=== PATIENT | female | born 1995 | race Two or more races ===

== ENCOUNTER 2018-08-04 14:51 | Emergency (ER) | payer OTHER ==
--- NOTE | 2018-08-04 15:06 | PDOC ---
Rapid Medical Evaluation Time Seen by Provider: 08/04/18 15:04 Medical Evaluation: Allergies Allergy/AdvReac Type Severity Reaction Status Date / Time No Known Allergies Allergy Verified 03/05/14 23:12 08/04/18 15:04 I have performed a brief in-person evaluation of this patient. The patient presents with a chief complaint of: lower back pain and vomiting no menses x3 months negative test at home today Pertinent physical exam findings: ambulates I have ordered the following:u preg The patient will proceed to the ED for further evaluation. Discharge Disposition - Diagnosis Back pain, Vomiting - Referrals - Patient Instructions - Post Discharge Activity
[2018-08-04 15:07] VITALS: BP 109/66; PULSE 97; TEMP 98.1; BMI 31.1
--- NOTE | 2018-08-04 15:57 | PDOC ---
*Physical Exam - Vital Signs Last Vital Signs Temp Pulse Resp BP Pulse Ox 98.1 F 97 H 18 109/66 100 08/04/18 15:05 08/04/18 15:05 08/04/18 15:05 08/04/18 15:05 08/04/18 15:05 - Physical Exam Comments: 08/04/18 15:57 The patient was examined by [JACOBO Olivarez] under my direct supervision. I personally evaluated the patient. I concur with the above findings and the plan of care. *DC/Admit/Observation/Transfer Diagnosis at time of Disposition: Back pain, Vomiting - Referrals Referrals: Lilo Poon MD [Primary Care Provider] - - Patient Instructions - Post Discharge Activity
[2018-08-04] MEDS ORDERED: ONDANSETRON 4 MG TABLET PO ONE (16:14)
--- NOTE | 2018-08-04 16:40 | PDOC ---
History of Present Illness - General Chief Complaint: Nausea/Vomiting Stated Complaint: BACK PAIN/DIARRHEA Time Seen by Provider: 08/04/18 15:04 History Source: Patient - History of Present Illness Timing/Duration: reports: intermittent, other (this am) Past History - Past Medical History Allergies/Adverse Reactions: Allergies Allergy/AdvReac Type Severity Reaction Status Date / Time No Known Allergies Allergy Verified 08/04/18 15:05 Home Medications: Ambulatory Orders Ferrous Sulfate [Feosol] 325 mg PO DAILY 01/21/14 Vit 108/Iron/Folic AC [ One Tablet] 1 each PO DAILY 01/21/14 Acetaminophen [Tylenol .Regular Strength -] 650 mg PO Q3H PRN #20 tablet Amlodipine Besylate [Norvasc -] 2.5 mg PO DAILY #30 tab 03/09/14 Benzocaine [Americaine 20% [place] -] 1 spray TP PRN PRN #1 spraybtl 03/09/14 Ferrous Sulfate [Feosol] 325 mg PO BID #60 ud 03/09/14 Vitamins (Sjr) - 1 tab PO DAILY #30 tablet 03/09/14 Witch Ashlee 50% (Tucks) [Tucks Pads -] 1 pad TP PRN PRN #1 pad 03/09/14 Ondansetron HCl [Zofran] 4 mg PO Q8H #12 tablet 08/04/18 Ondansetron HCl [Zofran] 4 mg PO Q8H #12 tablet 08/04/18 Asthma: No Cancer: No Cardiac Disorders: No COPD: No Diabetes: No HTN: No Seizures: No Thyroid Disease: No - Suicide/Smoking/Psychosocial Hx Smoking History: Never smoked Have you smoked in the past 12 months: No Information on smoking cessation initiated: No Hx Alcohol Use: No Drug/Substance Use Hx: No Substance Use Type: None Hx Substance Use Treatment: No Review of Systems - Review of Systems Constitutional: No: Chills, Fever ABD/GI: Yes: Diarrhea, Nausea, Vomiting. No: Abdominal cramping : No: Dysuria, Flank Pain, Hematuria Musculoskeletal: Yes: Back Pain *Physical Exam - Vital Signs Last Vital Signs Temp Pulse Resp BP Pulse Ox 98.1 F 97 H 18 109/66 100 08/04/18 15:05 08/04/18 15:05 08/04/18 15:05 08/04/18 15:05 08/04/18 15:05 - Physical Exam Comments: 08/04/18 16:53 Pt well jimmy, currently texting on her phone General Appearance: Yes: Appropriately Dressed. No: Apparent Distress HEENT: positive: Normal Voice Neck: positive: Supple Respiratory/Chest: negative: Respiratory Distress Gastrointestinal/Abdominal: positive: Normal Bowel Sounds, Soft. negative: Tender, Distended, Guarding, Rebound Musculoskeletal: positive: Normal Inspection. negative: CVA Tenderness Integumentary: positive: Dry, Warm Neurologic: positive: Fully Oriented, Alert, Normal Mood/Affect Medical Decision Making - Medical Decision Making 08/04/18 16:11 22 yo F, no sig hx, here with nausea, vomiting and diarrhea. Patient states since this a.m. as had 2-3 episodes of non-bilious, non-bloody vomitus and 2 episodes of non-bloody, watery diarrhea. Denies abdominal pain and no fever or chills. Denies sick contacts, recent travel or antibiotic use. Patient also reports intermittent lower back pain x 1 month. Has no pain at this time. No recent trauma. Denies dysuria or hematuria. Patient reports that for the past 3 months, she has had no menses but currently follow-up with her [facility] [employer] and had blood testing done recently and is to follow-up with Vicki for the results. Of note, has had multiple negative home tests, including this a.m. per patient see exam N/V/D Possible viral, abd benign w/ no ttp to RLQ, no RF for seriosu dysentery Stable and well jimmy -dc w/ supportive tx Amenorrhea x 3 months Multiple neg preg tests at home Currently being w/u by [facility] [employer] w/ labs done recently -upreg pending -anticipate dc w/ f/u with [facility] [employer] 08/04/18 16:59 Pt now informs me that her [facility] sent blood work on her 2 days ago including test, and she just got back results today on her phone documenting that her serum beta was negative. Will dc at this time. Remains well jimmy and stable w/ benign abd on reassessment *DC/Admit/Observation/Transfer Diagnosis at time of Disposition: Amenorrhea Nausea and vomiting Qualifiers: Vomiting type: unspecified Vomiting Intractability: non-intractable Qualified Code(s): R11.2 - Nausea with vomiting, unspecified Diarrhea Qualifiers: Diarrhea type: unspecified type Qualified Code(s): R19.7 - Diarrhea, unspecified Lower back pain Qualifiers: Chronicity: unspecified Back pain laterality: unspecified Sciatica presence: without sciatica Qualified Code(s): M54.5 - Low back pain - Discharge Dispostion Disposition: HOME Condition at time of disposition: Good - Prescriptions Prescriptions: Ondansetron HCl [Zofran] 4 mg PO Q8H #12 tablet Ondansetron HCl [Zofran] 4 mg PO Q8H #12 tablet - Referrals Referrals: Lilo Poon MD [Primary Care Provider] - - Patient Instructions Printed Discharge Instructions: Viral Gastroenteritis, DI for Amenorrhea Additional Instructions: The cause of your nausea, vomiting and diarrhea may be viral. In that case it usually self resolves. Drink plenty of fluids and take prescribed Zofran as needed for nausea. If symptoms persist and/or worsen and you develop abdominal pain, especially over the right lower part of your abdomen, return to ER immediately for a CAT scan to rule out appendicitis. Continue follow-up with your [facility] [employer] [facility] for evaluation of absence of your menses. Follow-up with your PMD if back pain continues - Post Discharge Activity
[2018-08-04] MEDS ORDERED: ONDANSETRON *ODT* 4 MG TABLET ONE (16:57)
== END 2018-08-04 17:32 | disposition home or self-care (01) ==
LOC: JER 14:51
DX: N91.2 Amenorrhea, unspecified (principal); R11.2 Nausea with vomiting, unspecified; R19.7 Diarrhea, unspecified; M54.5 Low back pain
CPT/HCPCS: 84703; 99281-25

== ENCOUNTER 2022-08-28 09:10 | Emergency (ER) | payer OTHER ==
[2022-08-28 09:16] VITALS: BP 99/61; PULSE 68; RESP 18; TEMP 97.3; BMI 26.0
[2022-08-28] MEDS ORDERED: MAG HYDROX/AL HYDROX/SIMETH -MYLANTA- ORAL SUSPENSION PO ONE (09:50)
[2022-08-28] MEDS ORDERED: FAMOTIDINE 20 MG TABLET PO ONE (09:50)
[2022-08-28] MEDS ORDERED: ONDANSETRON *ODT* 4 MG TABLET SL ONE (09:50)
[2022-08-28] MEDS ORDERED: ONDANSETRON 4 MG/2 ML VIAL IVPUSH ONE (09:52)
[2022-08-28] MEDS ORDERED: FAMOTIDINE 20 MG/50 ML IVPB 20 MG/50 ML MG IVPB ONE ×2 (09:52→10:08)
[2022-08-28] MEDS ORDERED: SODIUM CHLORIDE 0.9% 500 ML INFUS.BAG IV ONE (09:52)
[2022-08-28] MEDS ORDERED: MAG HYDROX/AL HYDROX/SIMETH 30 ML UNIT-DOSE CUP ONE (10:07)
[2022-08-28] MEDS ORDERED: ONDANSETRON 4 MG/2 ML VIAL ONE (10:07)
[2022-08-28 11:32] LABS: BASO % 0.3 % (0-2.0); EOS % 3.8 % (0-4.5); HEMATOCRIT 37.1 % (32.4-45.2); HEMOGLOBIN 13.1 GM/dL (10.7-15.3); LYMPH % 24.6 % (8-40); MCH 30.6 pg (25.7-33.7); MCHC 35.5 g/dl (32.0-36.0); MEAN CELL VOLUME 86.3 fl (80-96); MEAN PLT VOLUME 10.2 fl (7.5-11.1); MONO % 7.5 % (3.8-10.2); NEUT % 63.8 % (42.8-82.8); PLATELET COUNT 236 10^3/uL (134-434); RDW 13.5 % (11.6-15.6); WHITE BLOOD COUNT 5.4 K/mm3 (4.0-10.0)
[2022-08-28 11:46] LABS: BLOOD UREA NITROGEN 8.1 mg/dL (7-18)
[2022-08-28 11:49] LABS: CREATININE 0.6 mg/dL (0.55-1.3)
[2022-08-28 11:50] LABS: BILIRUBIN,TOTAL 1.2 mg/dL (0.2-1); TOT PROT 7.4 g/dl (6.4-8.2)
== END 2022-08-28 12:21 | disposition home or self-care (01) ==
LOC: JER 09:10
PROC: 3E033GC Introduction of Other Therapeutic Substance into Peripheral Vein, Percutaneous Approach (ICD-10-PCS; principal; 2022-08-28)
PROC: 3E033GC Introduction of Other Therapeutic Substance into Peripheral Vein, Percutaneous Approach (ICD-10-PCS; 2022-08-28)
DX: R11.2 Nausea with vomiting, unspecified (principal); R19.7 Diarrhea, unspecified
CPT/HCPCS: 36415; 80053; 83690; 84703; 85025; 99284-25

== ENCOUNTER 2022-10-05 08:28 | Emergency (ER) | payer OTHER ==
[2022-10-05 08:33] VITALS: BP 97/54; PULSE 69; RESP 18; TEMP 97.6; BMI 26.9
== END 2022-10-05 11:18 | disposition home or self-care (01) ==
LOC: JER 08:28
DX: R22.31 Localized swelling, mass and lump, right upper limb (principal); M79.641 Pain in right hand; S62.622A Displaced fracture of middle phalanx of right middle finger, initial encounter for closed fracture; W22.01XA Walked into wall, initial encounter
CPT/HCPCS: 73130-TC-RT-FY; 99283-25

== ENCOUNTER 2023-03-17 08:32 | Emergency (ER) | payer OTHER ==
[2023-03-17 08:36] VITALS: BP 101/61; PULSE 102; RESP 20; TEMP 97.8; BMI 24.2
[2023-03-17] MEDS ORDERED: ALBUTEROL SO4 2.5/IPRATROPIUM 0.5 INH SOL 3 ML VIAL.NEB. NEB ONE (09:14)
[2023-03-17] MEDS: ALBUTEROL SO4 2.5/IPRATROPIUM 0.5 INH SOL 3 ML VIAL.NEB. NEB SCH ×4 (09:16→10:00)
== END 2023-03-17 10:56 | disposition home or self-care (01) ==
LOC: JERFT 08:32
PROC: 3E0F7GC Introduction of Other Therapeutic Substance into Respiratory Tract, Via Natural or Artificial Opening (ICD-10-PCS; principal; 2023-03-17)
DX: R05.9 Cough, unspecified (principal); R06.02 Shortness of breath; R09.81 Nasal congestion; J98.01 Acute bronchospasm; Z20.822 Contact with and (suspected) exposure to COVID-19
CPT/HCPCS: 0241U-QW; 71046-TC-FY; 84703; 99284-25

== ENCOUNTER 2023-12-14 10:51 | Emergency (ER) | payer OTHER ==
[2023-12-14 11:25] VITALS: BP 101/57; PULSE 94; RESP 16; TEMP 97.8; BMI 26.0
[2023-12-14 12:16] LABS: BASO % 0.6 % (0-2.0); EOS % 1.8 % (0-4.5); HEMATOCRIT 39.6 % (32.4-45.2); LYMPH % 28.5 % (8-40); MCH 30.4 pg (25.7-33.7); MCHC 35.4 g/dl (32.0-36.0); MEAN CELL VOLUME 85.9 fl (80-96); MEAN PLT VOLUME 8.2 fl (7.5-11.1); MONO % 10.2 % (3.8-10.2); NEUT % 58.9 % (42.8-82.8); PLATELET COUNT 260 10^3/uL (134-434); RBC 4.61 M/mm3 (3.60-5.2); RDW 12.5 % (11.6-15.6); WHITE BLOOD COUNT 5.3 K/mm3 (4.0-10.0)
[2023-12-14 12:21] LABS: EPI CELLS >36 /uL (0-25.1); HCG,QUALITATIVE URINE Negative; HYALINE CASTS 4 /uL (0-3.1); URINE APPEARANCE CLEAR; URINE BACTERIA 632 /uL (0-1359); URINE BILIRUBIN NEGATIVE (NEGATIVE); URINE COLOR YELLOW; URINE GLUCOSE (UA) NEGATIVE (NEGATIVE); URINE KETONE TRACE (NEGATIVE); URINE LEUK ESTERASE NEGATIVE (NEGATIVE); URINE NITRITE NEGATIVE (NEGATIVE); URINE PROTEIN 1+ (NEGATIVE); URINE WBC 36 /uL (0-25.8)
[2023-12-14 12:29] LABS: POTASSIUM 3.8 mmol/L (3.5-5.1)
[2023-12-14 12:33] LABS: ALBUMIN 4.1 g/dl (3.4-5.0); BLOOD UREA NITROGEN 8.2 mg/dL (7-18)
[2023-12-14 12:36] LABS: CREATININE 0.8 mg/dL (0.55-1.3)
[2023-12-14 12:38] LABS: BILIRUBIN,TOTAL 1.1 mg/dL (0.2-1); TOT PROT 7.5 g/dl (6.4-8.2)
[2023-12-14] MEDS: SODIUM CHLORIDE 0.9% 500 ML INFUS.BAG IV ONE (12:51)
[2023-12-14 13:01] LABS: URINE RBC 117.7 /uL (0-23.9); YEAST NEGATIVE (NEGATIVE)
== END 2023-12-14 14:14 | disposition home or self-care (01) ==
LOC: JER 10:51
DX: K52.9 Noninfective gastroenteritis and colitis, unspecified (principal); R10.12 Left upper quadrant pain; R10.31 Right lower quadrant pain; R11.10 Vomiting, unspecified
CPT/HCPCS: 36415; 74177-TC; 80053; 81003; 83690; 84703; 85025; 87086; 87186; 99285-25

== ENCOUNTER 2024-10-19 08:36 | Emergency (ER) | payer OTHER ==
[2024-10-19 08:42] VITALS: BP 98/62; PULSE 92; RESP 18; TEMP 97.7; BMI 27.0
[2024-10-19] MEDS ORDERED: ALBUTEROL SO4 2.5/IPRATROPIUM 0.5 INH SOL 3 ML VIAL.NEB. NEB ONE (09:34)
[2024-10-19] MEDS ORDERED: ACETAMINOPHEN 500 MG TABLET (FP) ONE (09:35)
[2024-10-19] MEDS ORDERED: IBUPROFEN 400 MG TABLET (FP) PO ONE (09:35)
[2024-10-19] MEDS: ACETAMINOPHEN 500 MG TABLET (FP) PO ONE (09:39)
[2024-10-19] MEDS: ALBUTEROL SO4 2.5/IPRATROPIUM 0.5 INH SOL 3 ML VIAL.NEB. NEB ONE (09:39)
[2024-10-19] MEDS: IBUPROFEN 400 MG TABLET (FP) PO ONE (09:40)
[2024-10-19] MEDS: FLUTICASONE PROP 0.05% 16 GM NASAL SPRAY NS ONE (10:04)
== END 2024-10-19 11:23 | disposition home or self-care (01) ==
LOC: JERFT 08:36
PROC: 3E0F7GC Introduction of Other Therapeutic Substance into Respiratory Tract, Via Natural or Artificial Opening (ICD-10-PCS; principal; 2024-10-19)
DX: J01.90 Acute sinusitis, unspecified (principal); R09.82 Postnasal drip; R05.9 Cough, unspecified; R09.81 Nasal congestion; R51.9 Headache, unspecified; R09.3 Abnormal sputum
CPT/HCPCS: 0241U-QW; 71046-TC-FY; 99284-25